=== PATIENT | male | born 1965 | race Caucasian/White ===

== ENCOUNTER 2018-02-05 11:00 | Emergency (ER) | payer SELFPAY ==
[2018-02-05] MEDS ORDERED: THIAMINE 100 MG TAB PO (12:00)
== END 2018-02-05 12:51 | disposition left against medical advice (07) ==
LOC: E/R 11:00
DX: S00.83XA Contusion of other part of head, initial encounter (principal); S09.8XXA Other specified injuries of head, initial encounter; F10.920 Alcohol use, unspecified with intoxication, uncomplicated; X58.XXXA Exposure to other specified factors, initial encounter; Y92.9 Unspecified place or not applicable
CPT/HCPCS: 99283